=== PATIENT | male | born 1955 | race Caucasian/White ===

== ENCOUNTER 2017-12-06 12:11 | Day surgery (SDC) | payer OTHER ==
[~2017-12-06] VITALS: Ht 182.9 cm; Wt 123.4 kg
[~2017-12-06 12:11] MED LIST: MOBIC15 MG PO; PROMETHAZINE HC25 M1 PO; TENORMIN50 MG PO; TYLENOL EXTRA500 MG PO; ULTRAM50 MG PO; ZESTORETIC 20-1 EAC2 PO
== END 2017-12-06 15:18 | disposition home or self-care (01) ==
LOC: PAIN 12:11 → SDC 13:15 → PAIN 15:18
DX: M47.816 Spondylosis without myelopathy or radiculopathy, lumbar region (principal); M54.5 Low back pain; G89.29 Other chronic pain; M51.36 Other intervertebral disc degeneration, lumbar region; M71.38 Other bursal cyst, other site; M16.11 Unilateral primary osteoarthritis, right hip; I10 Essential (primary) hypertension; Z79.891 Long term (current) use of opiate analgesic; Z87.891 Personal history of nicotine dependence
CPT/HCPCS: J1030; J2250; S0020

== ENCOUNTER 2018-04-01 23:03 | Inpatient (IN) | payer OTHER ==
[~2018-04-01] VITALS: Ht 182.9 cm; Wt 113.9 kg
[~2018-04-01 23:03] MED LIST changes: +LASIX20 MG PO; +LORTAB 7.5-3251 EACH PO; +ZANAFLEX4 M1 PO
[2018-04-02 10:08] VITALS: BP 125/63
[2018-04-02 15:15] LABS: HEMATOCRIT 35.9 % (38.0-50.0); MCH 31.8 PG (29.0-34.0); MCHC 33.7 G/DL (30.0-36.0); MCV 94.5 FL (86-99); PLATELET COUNT 273 K/uL (156-360); RBC DIS.WIDTH-CV 11.9 % (11.8-14.6); RBC DIS.WIDTH-SD 41.9 % (39-53); WHITE BLOOD COUNT 12.7 K/uL (4.1-10.2)
[2018-04-02 15:19] LABS: HEMOGLOBIN 12.1 G/DL (12.5-16.6)
[2018-04-02 16:28] VITALS: BP 145/69
[2018-04-02 19:47] VITALS: BP 141/65
[2018-04-02 23:35] VITALS: BP 128/60
[2018-04-03 04:14] VITALS: BP 114/58
[2018-04-03 06:18] LABS: HEMATOCRIT 31.7 % (38.0-50.0); HEMOGLOBIN 10.9 G/DL (12.5-16.6); MCV 93.5 FL (86-99)
[2018-04-03 06:44] LABS: CHLORIDE 104 MEQ/L (99-109); CREATININE 0.9 MG/DL (0.6-1.3); GFR ESTIMATE (CALCULATED) > 59 mL/min/ (58.99-99999); GLUCOSE 118 mg/dL (70-99); POTASSIUM 3.7 MEQ/L (3.7-5.4); SODIUM 139 MEQ/L (136-147); UREA NITROGEN (BUN) 22 mg/dL (9-23)
[2018-04-03 08:00] VITALS: BP 101/50
[2018-04-03 12:13] VITALS: BP 86/52
[2018-04-03 15:52] VITALS: BP 112/54
[2018-04-03 20:01] VITALS: BP 124/53
[2018-04-04 00:19] VITALS: BP 103/52
[2018-04-04 04:26] VITALS: BP 117/58
[2018-04-04 08:01] VITALS: BP 1121/58
[2018-04-04] MEDS ORDERED: ENDOCET 5-3251 EACH PO (08:46)
[2018-04-04] MEDS ORDERED: LOVENOX40 MG/0.4 SC (08:46)
[2018-04-04] MEDS ORDERED: HYDROCODON-ACE1 EAC7 PO (08:50)
[2018-04-04 12:09] VITALS: BP 100/50
[2018-04-04] MEDS ORDERED: SENOKOT S,PE1 TABLET PO (16:58)
[2018-04-04] MEDS ORDERED: CELEBREX200 MG PO (16:59)
== END 2018-04-04 16:31 | DRG 470 ==
LOC: ENRESERV 23:03 → 2SOUTH 04-02 08:52 → 3WEST 04-02 08:52 → 2SOUTH 04-02 11:09 → 3WEST 04-02 16:09
PROVIDERS: Orthopaedic Surgery
PROC: 0SR90JA Replacement of Right Hip Joint with Synthetic Substitute, Uncemented, Open Approach (ICD-10-PCS; principal; 2018-04-02)
DX: M16.11 Unilateral primary osteoarthritis, right hip (principal); M87.9 Osteonecrosis, unspecified; I10 Essential (primary) hypertension; I25.10 Atherosclerotic heart disease of native coronary artery without angina pectoris; R42 Dizziness and giddiness; Z87.891 Personal history of nicotine dependence
CPT/HCPCS: 73501; 80048; 85014; 85018; 85027; J0131; J0690; J1170; J1650; J2795; J3010; J7050

== ENCOUNTER 2018-04-04 13:50 | Inpatient (IN) | payer OTHER ==
[~2018-04-04] VITALS: Ht 182.9 cm; Wt 109.7 kg
[~2018-04-04 13:50] MED LIST changes: +ENDOCET 5-3251 EACH PO; +HYDROCODON-ACE1 EAC7 PO; +LOVENOX40 MG/0.4 SC
[2018-04-04] MEDS ORDERED: SENOKOT S,PE1 TABLET PO (16:58)
[2018-04-04] MEDS ORDERED: CELEBREX200 MG PO (16:59)
[2018-04-04 17:04] VITALS: BP 127/61
[2018-04-04 23:50] VITALS: BP 92/68
[2018-04-05 05:42] VITALS: BP 118/57
[2018-04-05 12:49] LABS: BASOPHIL (%) 0.2 % (0-1); EOSINOPHIL COUNT 0.1 K/uL (0-0.3); HEMATOCRIT 33.1 % (38.0-50.0); IMMATURE GRANULOCYTE (%) 0.5 % (0.0-0.7); LYMPHOCYTE (%) 11.6 % (15-42); LYMPHOCYTE COUNT 1.2 K/uL (1.0-2.8); MCH 31.2 PG (29.0-34.0); MCHC 33.2 G/DL (30.0-36.0); MCV 93.8 FL (86-99); MONOCYTE (%) 10.7 % (3-12); MONOCYTE COUNT 1.1 K/uL (0-0.8); NEUTROPHIL COUNT 7.9 K/uL (1.8-6.4); PLATELET COUNT 309 K/uL (156-360); RBC DIS.WIDTH-CV 12.1 % (11.8-14.6); RBC DIS.WIDTH-SD 41.9 % (39-53); RED BLOOD COUNT 3.53 M/uL (4.00-5.50); WHITE BLOOD COUNT 10.4 K/uL (4.1-10.2)
[2018-04-05 13:06] LABS: ALBUMIN 3.2 G/DL (3.2-4.8); ALKALINE PHOSPHATASE 57 IU/L (3-129); ALT (GPT) 8 IU/L (3-49); AST (GOT) 15 IU/L (2-34); CHLORIDE 102 MEQ/L (99-109); CREATININE 1.1 MG/DL (0.6-1.3); GFR ESTIMATE (CALCULATED) > 59 mL/min/ (58.99-99999); GLUCOSE 121 mg/dL (70-99); POTASSIUM 3.7 MEQ/L (3.7-5.4); SODIUM 138 MEQ/L (136-147); TOTAL BILIRUBIN 0.5 MG/DL (0.0-1.0); TOTAL PROTEIN 6.2 G/DL (6.4-8.3); UREA NITROGEN (BUN) 25 mg/dL (9-23)
[2018-04-05 15:36] VITALS: BP 125/59
[2018-04-06 05:22] VITALS: BP 126/60
[2018-04-06 14:53] VITALS: BP 100/52
[2018-04-07 04:26] VITALS: BP 116/58
[2018-04-07 15:52] VITALS: BP 112/56
[2018-04-08 05:34] VITALS: BP 120/56
[2018-04-08 15:28] VITALS: BP 94/53
[2018-04-09 05:11] VITALS: BP 111/57
[2018-04-09 15:47] VITALS: BP 121/63
[2018-04-10 05:42] VITALS: BP 103/54
[2018-04-10] MEDS ORDERED: CELEBREX200 MG PO (08:49)
[2018-04-10] MEDS ORDERED: LOVENOX40 MG/0.4 SC (08:49)
== END 2018-04-10 14:25 | disposition home health service (06) | DRG 560 ==
LOC: 3WEST 13:50
PROVIDERS: Psychiatry & Neurology Neurology
PROC: F07M0ZZ Range of Motion and Joint Mobility Treatment of Musculoskeletal System - Whole Body (ICD-10-PCS; principal; 2018-04-04)
DX: Z47.1 Aftercare following joint replacement surgery (principal); Z96.641 Presence of right artificial hip joint; R26.2 Difficulty in walking, not elsewhere classified; D62 Acute posthemorrhagic anemia; I10 Essential (primary) hypertension; I25.10 Atherosclerotic heart disease of native coronary artery without angina pectoris; K21.9 Gastro-esophageal reflux disease without esophagitis
CPT/HCPCS: 80053; 85025; 97110 GO; 97530 GP; J1650